=== PATIENT | male | born 1940 | race Caucasian/White ===

== ENCOUNTER 2017-12-17 11:57 | Emergency (ER) | payer MEDICARE, OTHER ==
[~2017-12-17] VITALS: Ht 177.8 cm; Wt 87.0 kg
[~2017-12-17 11:57] MED LIST: ASPIRIN LOW DOS81 M2 PO; CIPROFLOXACN500 MG PO; COZAAR100 MG PO; DILAUDID 2MG2 MG/TA1 PO; GLUCOS/CHOND1 TAB PO; LIPITOR20 MG PO; LOPRESSOR 550 MG/TAB PO; NO HOME MEDICATIONS
[2017-12-17] MEDS ORDERED: AUGMENTIN875TAB PO (12:50)
[2017-12-17 13:47] VITALS: BP 175/77
== END 2017-12-17 13:51 | disposition home or self-care (01) ==
LOC: ED 11:57
PROC: 2W3KX1Z Immobilization of Left Finger using Splint (ICD-10-PCS; principal; 2017-12-17)
DX: S61.052A Open bite of left thumb without damage to nail, initial encounter (principal); M79.645 Pain in left finger(s); S60.812A Abrasion of left wrist, initial encounter; S60.512A Abrasion of left hand, initial encounter; W55.01XA Bitten by cat, initial encounter; Y92.009 Unspecified place in unspecified non-institutional (private) residence as the place of occurrence of the external cause

== ENCOUNTER → 2018-07-19 | Outpatient (REF) | payer MEDICARE, OTHER ==
[~2018-07-19] MED LIST changes: +AUGMENTIN875TAB PO
[2018-07-19 07:56] LABS: HEMATOCRIT 41.8 % (39.0-50.0); HEMOGLOBIN 14.1 g/dl (14.0-18.0); IMMATURE GRANULOCYTES 0.5 % (0.0-5.0); MEAN CELL VOLUME 86.4 fL CALC (80.0-100.0); MEAN CORPUSCULAR HGB 29.1 pG CALC (26.0-32.0); MEAN CORPUSCULAR HGB CONC 33.7 g/L CALC (32.0-36.0); NEUT# 5.13 thou/uL (1.82-7.42); RED BLOOD COUNT 4.84 mill/uL (4.70-6.10); RED CELL DISTRI WIDTH 13.8 % (11.5-15.5)
[2018-07-19 08:32] LABS: ALKALINE PHOSPHATASE 100 u/l (38-126); ANION GAP 13 (6-22 (CALC)); BILIRUBIN, TOTAL 0.7 mg/dL (0.0-1.4); BUN 23 mg/dL (8-23); BUN/CREATININE RATIO 20 (12-20 (CALC)); CALCULATED LDLCHOLESTEROL 103 mg/dL (62-129 (CALC)); CARBON DIOXIDE 26 mmol/l (22-30); CHLORIDE 109 mmol/l (95-108); CHOLESTEROL HDL RATIO 3.2 (<4.4 (CALC)); CREATININE 1.1 mg/dL (0.7-1.3); GFR > 60 ML/MIN (>=60 (CALC)); GFR FOR AFR.AMER. > 60 ML/MIN (>=60 (CALC)); HDL CHOLESTEROL 55 mg/dL (>=40); POTASSIUM 4.7 mmol/l (3.5-5.1); SGOT/AST 20 u/l (19-48); SODIUM 144 mmol/l (137-146); TOTAL CHOLESTEROL 179 mg/dl (0-199); TOTAL PROTEIN 6.7 g/dL (6.3-8.2); TOTAL TRIGLYCERIDES 104 mg/dl (30-149); VLDL CHOLESTROL 21 mg/dl (0-38 (CALC))
[2018-07-19 08:59] LABS: TSH, 3RD GENERATION 2.05 uIU/mL (0.47 - 4.68)
== END | disposition home or self-care (01) ==
LOC: LAB 06:35
PROVIDERS: ATTEND Nurse Practitioner Family
DX: C61 Malignant neoplasm of prostate (principal); I10 Essential (primary) hypertension; E78.49 Other hyperlipidemia

== ENCOUNTER 2023-07-18 17:04 | Emergency (ER) | payer MEDICARE, OTHER ==
[~2023-07-18] VITALS: Ht 177.8 cm; Wt 90.7 kg
[2023-07-18] VITALS (13 sets, daily range): BP systolic 141–165; BP diastolic 71–92
[2023-07-18 17:37] LABS: EOS% 8.8 % (0-8); HEMATOCRIT 42.5 % (39.0-50.0); HEMOGLOBIN 13.7 g/dl (14.0-18.0); IMMATURE GRANULOCYTES 0.3 % (0.0-5.0); MEAN CELL VOLUME 86.9 fL CALC (80.0-100.0); MEAN CORPUSCULAR HGB CONC 32.2 g/dL CAL (32.0-36.0); MONO% 7.3 % (2-13); NEUT# 6.36 thou/uL (1.82-7.42); NEUT% 67.6 % (42-76); RED BLOOD COUNT 4.89 mill/uL (4.70-6.10); RED CELL DISTRI WIDTH 13.9 % (11.5-15.5)
[2023-07-18] MEDS ORDERED: AMLODIPINE BESYL5 MG PO (17:38)
[2023-07-18] MEDS ORDERED: COZAAR100 MG PO (17:38)
[2023-07-18] MEDS ORDERED: ERLEADA240 MG PO (17:39)
[2023-07-18 17:54] LABS: ALBUMIN 4.1 g/dL (3.2-5.0); ALKALINE PHOSPHATASE 100 u/l (38-126); ANION GAP 12 (6-22 (CALC)); BILIRUBIN, TOTAL 0.4 mg/dL (0.2-1.3); BUN 20 mg/dL (8-23); BUN/CREATININE RATIO 20 (12-20 (CALC)); CARBON DIOXIDE 25 mmol/l (22-30); CHLORIDE 107 mmol/l (95-108); GFR FOR AFR.AMER. > 60 ML/MIN (>=60 (CALC)); GFR OTHER RACES > 60 ML/MIN (>=60 (CALC)); POTASSIUM 4.1 mmol/l (3.5-5.1); SGOT/AST 29 u/l (19-48); SODIUM 141 mmol/l (137-146); TOTAL PROTEIN 7.1 g/dL (6.3-8.2)
[2023-07-18 19:25] LABS: MAGNESIUM 2.3 mg/dL (1.6-2.3)
[2023-07-18 19:33] LABS: URINE BILIRUBIN - DIPSTICK Negative (NEGATIVE); URINE BLOOD DIPSTICK Negative (NEGATIVE); URINE GLUCOSE - DIPSTICK Negative (NEGATIVE); URINE KETONE Negative (NEGATIVE); URINE LEUK ESTERASE Negative (NEGATIVE); URINE NITRITE - DIPSTICK Negative (Negative); URINE PROTEIN - DIPSTICK Negative (NEG-TRACE); URINE SPECIFIC GRAVITY 1.025; URINE UROBILINOGEN - DIPSTICK 0.2 E.U./dL (0.2)
[2023-07-18 19:38] LABS: URINE COLOR Yellow
== END 2023-07-18 20:20 | disposition home or self-care (01) ==
LOC: ED 17:04
PROVIDERS: Family Medicine
DX: R55 Syncope and collapse (principal); I10 Essential (primary) hypertension; N40.0 Benign prostatic hyperplasia without lower urinary tract symptoms; Z85.46 Personal history of malignant neoplasm of prostate; Z20.822 Contact with and (suspected) exposure to COVID-19

== ENCOUNTER 2024-07-11 21:04 | Observation (INO) | payer MEDICARE, OTHER ==
[2024-07-11] VITALS (8 sets, daily range): BP systolic 139–156; BP diastolic 67–73
[~2024-07-11] VITALS: Ht 177.8 cm; Wt 90.0 kg
[~2024-07-11 21:04] MED LIST changes: +AMLODIPINE BESYL5 MG PO; +ERLEADA240 MG PO
[2024-07-11] MEDS ORDERED: MORPHINE SULFATE 4 MG/ML VIAL IV ONE (21:20)
[2024-07-11] MEDS ORDERED: ASPIRIN 81 MG/TAB PO ONE (21:20)
[2024-07-11] MEDS ORDERED: ONDANSETRON HCl 4 MG/2 ML SDV IV ONE (21:20)
[2024-07-11] MEDS ORDERED: NITROGLYCERIN 2% OINT UD 1 GM/PAK TD ONE (21:20)
[2024-07-11 21:23] LABS: BASO% 0.5 % (0-3); EOS% 3.9 % (0-8); HEMOGLOBIN 13.2 g/dl (14.0-18.0); IMMATURE GRANULOCYTES 0.2 % (0.0-5.0); LYMPH% 10.3 % (15-41); MEAN CELL VOLUME 87.6 fL CALC (80.0-100.0); MEAN CORPUSCULAR HGB 28.2 pG CALC (26.0-32.0); MEAN CORPUSCULAR HGB CONC 32.2 g/dL CAL (32.0-36.0); MONO% 3.2 % (2-13); NEUT# 13.12 thou/uL (1.82-7.42); NEUT% 81.9 % (42-76); RED BLOOD COUNT 4.68 mill/uL (4.70-6.10); RED CELL DISTRI WIDTH 13.3 % (11.5-15.5)
[2024-07-11 21:34] LABS: ALBUMIN 4.6 g/dL (3.2-5.0); BILIRUBIN, TOTAL 0.5 mg/dL (0.2-1.3); CREATININE 1.3 mg/dL (0.7-1.3); MAGNESIUM 2.2 mg/dL (1.6-2.3); POTASSIUM 4.6 mmol/l (3.5-5.1); TOTAL PROTEIN 7.2 g/dL (6.3-8.2)
[2024-07-11 22:05] LABS: TSH, 3RD GENERATION 4.88 uIU/mL (0.47 - 4.68)
[2024-07-12] VITALS (52 sets, daily range): BP systolic 118–152; BP diastolic 59–80
[2024-07-12] MEDS ORDERED: Polyethylene Glycol 3350 17 GM/PKT PO PRN (00:10)
[2024-07-12] MEDS ORDERED: FAMOTIDINE 10MG/ML 2ML SDV IV PRN (00:10)
[2024-07-12] MEDS ORDERED: ONDANSETRON 4 MG/TAB ODT PO PRN (00:10)
[2024-07-12] MEDS ORDERED: ALUM & MAG HYDROX-SIMETHICONE 30 ML PO PRN (00:10)
[2024-07-12] MEDS ORDERED: IBUPROFEN 800 MG/TAB PO PRN (00:10)
[2024-07-12] MEDS ORDERED: ONDANSETRON HCl 4 MG/2 ML SDV IV PRN (00:10)
[2024-07-12] MEDS ORDERED: ASPIRIN 81 MG/TAB PO SCH (08:00)
[2024-07-12] MEDS ORDERED: amLODIPine BESYLATE 5 MG/TAB PO SCH (09:00)
[2024-07-12] MEDS ORDERED: LOSARTAN Potassium 50 MG/TAB PO SCH (09:00)
[2024-07-12 09:25] LABS: BASO% 0.5 % (0-3); EOS% 2.7 % (0-8); HEMATOCRIT 37.5 % (39.0-50.0); HEMOGLOBIN 11.6 g/dl (14.0-18.0); IMMATURE GRANULOCYTES 0.1 % (0.0-5.0); LYMPH% 15.6 % (15-41); MEAN CELL VOLUME 91.5 fL CALC (80.0-100.0); MEAN CORPUSCULAR HGB 28.3 pG CALC (26.0-32.0); MEAN CORPUSCULAR HGB CONC 30.9 g/dL CAL (32.0-36.0); MONO% 6.1 % (2-13); NEUT# 8.82 thou/uL (1.82-7.42); RED BLOOD COUNT 4.1 mill/uL (4.70-6.10); RED CELL DISTRI WIDTH 13.6 % (11.5-15.5)
[2024-07-12 09:35] LABS: ALBUMIN 3.9 g/dL (3.2-5.0); BILIRUBIN, TOTAL 0.4 mg/dL (0.2-1.3); CREATININE 1.2 mg/dL (0.7-1.3); POTASSIUM 4.5 mmol/l (3.5-5.1); TOTAL PROTEIN 6.4 g/dL (6.3-8.2)
[2024-07-12] MEDS ORDERED: NITROSTAT0.4 MG SL (14:20)
[2024-07-12] MEDS ORDERED: ATORVASTATIN CALCIUM 20 MG/TAB PO SCH (21:00)
== END 2024-07-12 14:40 | disposition home or self-care (01) ==
LOC: ED 21:04 → ED-I 23:56 → ED 07-12 00:11 → ICU 07-12 00:12
PROVIDERS: Internal Medicine; ADMIT Internal Medicine; ATTEND Internal Medicine
DX: R07.9 Chest pain, unspecified (principal); R10.13 Epigastric pain; I10 Essential (primary) hypertension; E78.00 Pure hypercholesterolemia, unspecified; Z85.46 Personal history of malignant neoplasm of prostate; Z87.891 Personal history of nicotine dependence